=== PATIENT | female | born 1975 | race African-American/Black ===

== ENCOUNTER → 2018-01-25 | Emergency (ER) | payer BC ==
[~2018-01-25] VITALS: Ht 154.9 cm; Wt 61.7 kg
[~2018-01-25] MED LIST: HYDROCODONE/APAP 5MG-325MG TAB PO ONE; LIDOCAINE HCL 1% LOCAL INJ 20 ML VIAL INJ ONE
== END | disposition home or self-care (01) ==
LOC: FSED 17:30
DX: L02.412 Cutaneous abscess of left axilla (principal)
CPT/HCPCS: 10061; 99283; J2001

== ENCOUNTER 2020-08-24 09:47 | Emergency (ER) | payer BC, OTHER ==
[~2020-08-24] VITALS: Ht 154.9 cm; Wt 70.3 kg
[2020-08-24] MEDS ORDERED: DOXYCYCLINE HY100 MG PO (13:27)
== END 2020-08-24 13:40 | disposition home or self-care (01) ==
LOC: FSED 10:45
DX: L73.2 Hidradenitis suppurativa (principal); Z86.14 Personal history of Methicillin resistant Staphylococcus aureus infection
CPT/HCPCS: 76536; 99282